=== PATIENT | male | born 1955 | race Caucasian/White ===

== ENCOUNTER → 2016-12-18 | Day surgery (SDC) | payer OTHER, MEDICARE ==
[~2016-12-18] VITALS: Ht 182.9 cm; Wt 142.9 kg
[~2016-12-18] MED LIST: ATENOLOL25 M1; ATORVASTATIN CA80 M1; FUROSEMIDE40 M1; LISINOPRIL40 M1; METFORMIN HCL1000 M1; XARELTO20 M2 PO
--- NOTE | 2016-12-19 10:10 | Operative Report ---
Operative/Inv Procedure Report Surgery Date: 12/18/16 Name of Procedure: Release Dupuytren's right palm for ring and small finger including small PIP extension Pre-Operative Diagnosis: Symptomatic Dupuytren's right hand right weighing right small finger Post-Operative Diagnosis: Same Estimated Blood Loss: scant Surgeon/Tanning Salon Attendant: BAILEY CARTER MD Anesthesia: moderate sedation, block Operative/Procedure Note Note: Patient was counseled extensively reversed the procedure the alternatives the risks and the expected outcomes as well as relates he is requesting surgical intervention to treat symptomatic dominant right hand Dupuytren's of the palm small and ring finger. No guarantees were given in regards to results of surgery. Talked about the procedure the alternatives risks and the expected outcomes. We talked about infection bleeding open wounds. She desired results pain numbness any of the involved operated fingers. Recurrence. 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 Once agreed to informed consent was signed. Taken to the operating placed supine on the table. Intravenous sedation and median nerve and ulnar nerve block was carried out. Tourniquet was placed on the distal forearm after sterile prep and drape. Transverse palm incision was made distally as well as a longitudinal incision overlying the fourth ray in the palm. Fibrous disease was removed. Sander's incision was then extended up the small finger flaps were developed and extensive disease was removed up to and including the level of the PIP. Wounds were irrigated closed. With the small finger in extension there was no vascular compromise. Digital short arm splint was placed.
== END ==
LOC: STS 01:11
DX: M72.0 Palmar fascial fibromatosis [Dupuytren] (principal); I48.91 Unspecified atrial fibrillation; Z79.01 Long term (current) use of anticoagulants; E11.9 Type 2 diabetes mellitus without complications; Z79.4 Long term (current) use of insulin; Z79.84 Long term (current) use of oral hypoglycemic drugs; B19.20 Unspecified viral hepatitis C without hepatic coma; E78.00 Pure hypercholesterolemia, unspecified; I10 Essential (primary) hypertension
CPT/HCPCS: 88304; J0690; J2250